=== PATIENT | male | born 1980 | race African-American/Black ===

== ENCOUNTER 2016-09-21 21:32 | Emergency (ER) | payer OTHER ==
[~2016-09-21] VITALS: Ht 180.3 cm; Wt 90.7 kg
[2016-09-21 23:58] VITALS: BP 133/93
== END 2016-09-22 | disposition home or self-care (01) ==
LOC: ER 21:32
DX: S51.812A Laceration without foreign body of left forearm, initial encounter (principal); S51.012A Laceration without foreign body of left elbow, initial encounter; W25.XXXA Contact with sharp glass, initial encounter; Y93.89 Activity, other specified; Y92.89 Other specified places as the place of occurrence of the external cause; Y99.9 Unspecified external cause status